=== PATIENT | male | born 1975 | race Two or more races ===

== ENCOUNTER 2019-10-29 20:18 | Emergency (ER) | payer OTHER ==
[~2019-10-29] VITALS: Ht 170.2 cm; Wt 90.3 kg
[2019-10-29] MEDS ORDERED: IRBESARTAN300 MG PO (20:32)
[2019-10-29] MEDS ORDERED: TOPROL XL25 M1 (20:32)
== END 2019-10-29 22:33 | disposition home or self-care (01) ==
LOC: ER 20:18
DX: I10 Essential (primary) hypertension (principal)

== ENCOUNTER 2021-09-15 10:54 | Outpatient (CLI) | payer OTHER ==
[~2021-09-15 10:54] MED LIST: IRBESARTAN300 MG PO; TOPROL XL25 M1
== END 2021-09-15 11:04 | disposition home or self-care (01) ==
LOC: RAD 10:54
PROVIDERS: ATTEND Physical Medicine & Rehabilitation
DX: M16.11 Unilateral primary osteoarthritis, right hip (principal); M54.06 Panniculitis affecting regions of neck and back, lumbar region

== ENCOUNTER 2024-06-30 23:56 | Inpatient (IN) | payer OTHER ==
[~2024-06-30] VITALS: Ht 175.3 cm; Wt 90.7 kg
[2024-07-01] MEDS ORDERED: PROMETHAZINE HCL 50 MG/ML AMPUL IM STA (02:50)
[2024-07-01] MEDS ORDERED: HYOSCYAMINE SULFATE 0.125 MG TAB.SUBL SL STA (02:50)
[2024-07-01] MEDS ORDERED: FAMOTIDINE/PF 20 MG/2 ML VIAL IV PUSH STA (02:51)
[2024-07-01] MEDS ORDERED: LACTOBACILLUS ACIDOPHILUS 1 CAP CAP PO STA (02:51)
[2024-07-01] MEDS ORDERED: 0.9 % SODIUM CHLORIDE 1,000 ML IV ONE (03:00)
[2024-07-01 03:50] LABS: MEAN CELL VOLUME 74.8 fL (80.0-100.00); MEAN CORPUSCULAR HEMOGLOBIN 26.8 pg (27.00-32.0); MEAN CORPUSCULAR HGB CONC 35.7 g/dl (32.0-36.0); RED BLOOD COUNT 6.37 M/uL (4.00-6.00); RED CELL DISTRIBUTION WIDTH 14.1 % (11.5-14.5)
[2024-07-01 03:55] LABS: HEMATOCRIT 48.7 % (39.0-48.0); HEMOGLOBIN 17.1 g/dL (13-16.00)
[2024-07-01 03:56] LABS: PLATELET COUNT 126 K/uL (150-450)
[2024-07-01 04:23] LABS: ALBUMIN 3.6 gm/dL (3.4-5.0); BILIRUBIN TOTAL 0.48 mg/dL (0.3-1.2); CALCIUM 8.5 mg/dL (8.5-10.1); CREATININE SERUM 1.67 mg/dL (0.70-1.30); GFR 44.13; GLOBULINA 4.2 G/DL (2.4-3.5); POTASSIUM 3.77 mEq/L (3.5-5.1); TOTAL PROTEIN 7.8 gm/dL (6.4-8.2)
[2024-07-01] MEDS ORDERED: ONDANSETRON HCL 2 MG/ML VIAL IV PRN (07:30)
[2024-07-01] MEDS ORDERED: ACETAMINOPHEN 325 MG TABLET PO PRN (07:30)
[2024-07-01] MEDS ORDERED: 0.9 % SODIUM CHLORIDE 1,000 ML IV SCH (07:45)
[2024-07-01 10:12] VITALS: BP 118/76; O2SAT 99
[2024-07-01 11:47] LABS: PH,URINE 5.5 (5.0-8.0); URINE BILIRRUBIN Negative (NEGATIVE); URINE BLOOD Negative; URINE COLOR Yellow; URINE GLUCOSE Negative (NEGATIVE); URINE LEUKOCYTE Negative; URINE NITRATE Negative; URINE UROBILINOGEN 0.2 E.U./dl
[2024-07-01 11:50] LABS: URINE CAST 15.72 uL (0.0-1.40); URINE EPITHELIAL CELLS 52.2 uL (0.0-38.8); URINE RBC 2.7 uL (0.0-20.8); URINE WBC 10.8 uL (0.0-23.2)
[2024-07-01 11:57] LABS: URINE APPEARANCE CLEAR; URINE KETONE 40 (NEGATIVE); URINE PROTEIN 300 (NEGATIVE)
[2024-07-01 17:51] VITALS: BP 131/84; O2SAT 97
[2024-07-02 01:53] VITALS: BP 127/81; O2SAT 96
[2024-07-02 07:08] LABS: ALBUMIN 3.4 gm/dL (3.4-5.0); BILIRUBIN TOTAL 0.65 mg/dL (0.3-1.2); CALCIUM 8.1 mg/dL (8.5-10.1); CREATININE SERUM 1.4 mg/dL (0.70-1.30); GFR 54.09; GLOBULINA 3.5 G/DL (2.4-3.5); POTASSIUM 3.95 mEq/L (3.5-5.1); TOTAL PROTEIN 6.9 gm/dL (6.4-8.2)
[2024-07-02 07:24] LABS: HEMATOCRIT 45.2 % (39.0-48.0); HEMOGLOBIN 15.9 g/dL (13-16.00); MEAN CELL VOLUME 75.6 fL (80.0-100.00); MEAN CORPUSCULAR HEMOGLOBIN 26.7 pg (27.00-32.0); MEAN CORPUSCULAR HGB CONC 35.3 g/dl (32.0-36.0); RED BLOOD COUNT 5.98 M/uL (4.00-6.00); RED CELL DISTRIBUTION WIDTH 13.7 % (11.5-14.5)
[2024-07-02 08:04] LABS: PLATELET COUNT 108 K/uL (150-450)
[2024-07-02 08:18] VITALS: BP 120/77
[2024-07-02] MEDS ORDERED: LACTOBACILLUS ACIDOPHILUS 1 CAP CAP PO SCH (17:00)
[2024-07-02 18:17] VITALS: BP 130/71
[2024-07-03 02:53] VITALS: BP 129/76
[2024-07-03 06:51] LABS: HEMATOCRIT 42.6 % (39.0-48.0); HEMOGLOBIN 14.9 g/dL (13-16.00); MEAN CELL VOLUME 75.3 fL (80.0-100.00); MEAN CORPUSCULAR HEMOGLOBIN 26.3 pg (27.00-32.0); RED BLOOD COUNT 5.66 M/uL (4.00-6.00); RED CELL DISTRIBUTION WIDTH 13.7 % (11.5-14.5)
[2024-07-03 06:57] LABS: PLATELET COUNT 80 K/uL (150-450)
[2024-07-03 07:26] LABS: ALBUMIN 3.1 gm/dL (3.4-5.0); BILIRUBIN TOTAL 0.65 mg/dL (0.3-1.2); C-REACTIVE PROTEIN 0.57 MG/DL (0.00-0.29); CALCIUM 7.8 mg/dL (8.5-10.1); CREATININE SERUM 1.27 mg/dL (0.70-1.30); GFR 60.53; GLOBULINA 3.3 G/DL (2.4-3.5); PHOSPHOROUS 2.6 mg/dL (2.5-4.9); POTASSIUM 3.44 mEq/L (3.5-5.1); TOTAL PROTEIN 6.4 gm/dL (6.4-8.2)
[2024-07-03 09:02] VITALS: BP 132/90
[2024-07-03 14:39] LABS: HEMATOCRIT 45.9 % (39.0-48.0); HEMOGLOBIN 15.9 g/dL (13-16.00); MEAN CORPUSCULAR HEMOGLOBIN 26.4 pg (27.00-32.0); MEAN CORPUSCULAR HGB CONC 34.7 g/dl (32.0-36.0); RED BLOOD COUNT 6.03 M/uL (4.00-6.00); RED CELL DISTRIBUTION WIDTH 13.8 % (11.5-14.5)
[2024-07-03 15:27] LABS: PLATELET COUNT 74 K/uL (150-450)
[2024-07-03 16:15] LABS: ALBUMIN 3.3 gm/dL (3.4-5.0); BILIRUBIN TOTAL 0.6 mg/dL (0.3-1.2); CALCIUM 8.2 mg/dL (8.5-10.1); CREATININE SERUM 1.16 mg/dL (0.70-1.30); GFR 67.2; GLOBULINA 3.4 G/DL (2.4-3.5); POTASSIUM 3.77 mEq/L (3.5-5.1); TOTAL PROTEIN 6.7 gm/dL (6.4-8.2)
[2024-07-03 17:40] VITALS: BP 119/80
[2024-07-03] MEDS ORDERED: CEFTRIAXONE SODIUM 2,000 MG VIAL IV SCH (21:00)
[2024-07-04 00:29] VITALS: BP 142/80; O2SAT 99
[2024-07-04 07:37] LABS: BILIRUBIN TOTAL 0.43 mg/dL (0.3-1.2); CREATININE SERUM 1.04 mg/dL (0.70-1.30); GFR 76.22; GLOBULINA 3.7 G/DL (2.4-3.5); POTASSIUM 3.7 mEq/L (3.5-5.1); TOTAL PROTEIN 6.7 gm/dL (6.4-8.2)
[2024-07-04 08:12] LABS: HEMATOCRIT 42.5 % (39.0-48.0); HEMOGLOBIN 14.9 g/dL (13-16.00); MEAN CELL VOLUME 75.9 fL (80.0-100.00); MEAN CORPUSCULAR HEMOGLOBIN 26.6 pg (27.00-32.0); RED CELL DISTRIBUTION WIDTH 13.6 % (11.5-14.5)
[2024-07-04 08:23] VITALS: BP 136/85
[2024-07-04 09:07] LABS: MANUAL PLATELET COUNT 156; PLATELET COUNT 78 K/uL (150-450)
[2024-07-04 17:08] VITALS: BP 152/87
[2024-07-05 00:26] VITALS: BP 143/80; O2SAT 99
[2024-07-05 09:06] VITALS: BP 127/85
== END 2024-07-05 12:35 | disposition home or self-care (01) | DRG 866 ==
LOC: ER 23:58 → MEDJ 07-01 09:11
PROVIDERS: General Practice; Internal Medicine Infectious Disease; ADMIT Internal Medicine; ATTEND Internal Medicine
PROC: BW40ZZZ Ultrasonography of Abdomen (ICD-10-PCS; principal; 2024-07-04)
DX: A90 Dengue fever [classical dengue] (principal); D72.818 Other decreased white blood cell count; B34.9 Viral infection, unspecified; I10 Essential (primary) hypertension; E86.0 Dehydration